=== PATIENT | female | born 1990 | race Caucasian/White ===

== ENCOUNTER → 2016-07-04 | Outpatient (CLI) | payer MEDICAID ==
[~2016-07-04] MED LIST: ATIVAN-DPS1 MG PO; CELEXA DPS20 MG PO; KEFLEX-DPS500 MG PO; NORCO 5-325 TA1 EACH PO; PHENERGAN DPS25 MG PO; RISPERDAL1 MG PO; TYLENOL DPS325 MG PO
== END | disposition home or self-care (01) ==
LOC: RAD.S 13:30
DX: I82.401 Acute embolism and thrombosis of unspecified deep veins of right lower extremity (principal); M79.604 Pain in right leg

== ENCOUNTER 2016-09-17 22:19 | Emergency (ER) | payer MEDICAID ==
--- NOTE | 2016-09-19 15:59 | ER ---
ADMIT: 09/17/2016 RM/LOC: ER [facility] MR#: [id number] [id number] [place], [place] [id number] NATALIA JACOBS [address] [place] [address] Emergency Room Report SEX: F AGE: 26 : 1990 DATE: 09/17/2016 CHIEF COMPLAINT: Right ankle pain. HISTORY OF PRESENT ILLNESS: A 26-year-old white female, who presents with an injury to right ankle just prior to arrival. States she was walking when she tripped and twisted her ankle. She did have an ankle surgery completed 2 months ago to retighten the ligament secondary to chronic ankle sprain. States her pain is severe, 10/10. Denies any snapping/popping sensation. She does have swelling. No tingling or numbness. She has significant pain with movement, unable to bear weight. COURSE IN THE EMERGENCY ROOM: GENERAL: The patient was seen and examined, afebrile, nontoxic. She is in mild amount of distress with significant anxiety. Musculoskeletal extremities: Foot, she does have some tenderness over the dorsal aspect of the foot. No real bony tenderness. No swelling or ecchymosis. Ankle, she has soft tissue tenderness above the medial malleolus, specifically over ATF. She has a limited range of motion secondary to pain, significant swelling. No ecchymosis. Neurovascularly, she is intact with sensation in the distal extremity to light touch. No vascular compromise. She has good dorsalis pedis and posterior tib pulses. She has brisk capillary refill. Gait is unable to be tested secondary to pain. Routine ankle series was obtained on the right, no fractures or dislocations. She was placed in an Rob wrap. Given crutches to assist with ambulation. I did give her [place] 5/325 mg, #2, states her pain is still significant. IMPRESSION: Right anterior talofibular ligament sprain. DISPOSITION: The patient was discharged with crutches to use as needed. She does have a boot from the previous surgery, I recommend that she continue to use this until she follows up with her surgeon on Thursday. She already had this appointment scheduled previous to today. I gave her a script for [place] 5/325 mg, one to two tabs every 4 to 6 hours as needed for pain, #20. Rest, ice, compress, elevate, cautioned her against using the [place] while driving, making important decisions. Questions were sought and answered to the best of my ability and to the patient's satisfaction. Discharged to home in stable condition. MULUGETA Porter / Trevor Birch MD / sera JOB #: [id number] CC: Trevor Birch MD, Attending Physician Davie Floyd MD, Family Physician
== END 2016-09-18 00:25 | disposition home or self-care (01) ==
LOC: ER 22:19
DX: S93.491A Sprain of other ligament of right ankle, initial encounter (principal); F17.200 Nicotine dependence, unspecified, uncomplicated; F41.9 Anxiety disorder, unspecified; F32.9 Major depressive disorder, single episode, unspecified; X50.1XXA Overexertion from prolonged static or awkward postures, initial encounter; Y92.009 Unspecified place in unspecified non-institutional (private) residence as the place of occurrence of the external cause